=== PATIENT | female | born 1950 | race Caucasian/White ===

== ENCOUNTER 2016-11-19 10:17 | Emergency (ER) | payer MEDICARE, OTHER ==
--- NOTE | 2016-11-19 11:27 | UC ---
Complaint Female HPI - HPI Summary HPI Summary: patient is having increased urinary frequency, dysuria and lower abdominal pressure for the past 5 days. - History Of Current Complaint Stated Complaint: URINARY Time Seen by Provider: 11/19/16 11:07 Hx Obtained From: Patient ?: No Onset/Duration: Sudden Onset, Lasting Days Timing: Lasting Days Severity Initially: Mild Severity Currently: Moderate Character: Burning Aggravating Factor(s): Urination - Allergies/Home Medications Allergies/Adverse Reactions: Allergies Allergy/AdvReac Type Severity Reaction Status Date / Time No Known Allergies Allergy Verified 11/19/16 11:28 Home Medications: Home Medications Alendronate (NF) [Fosamax (NF)] 35 mg PO WEEKLY 11/19/16 [History Confirmed 08/03] Cholecalciferol TAB* [Vitamin D TAB*] 2,000 unit DAILY 11/19/16 [History Confirmed 11/19/16] Cyclosporine 0.05% OPHTH (NF) [Restasis 0.05% OPHTH] 1 drop BOTH EYES BID [History Confirmed 11/19/16] Ibuprofen TAB* [Motrin TAB* 600 MG] 600 mg TID 11/19/16 [History Confirmed 11/19] Multiple Vitamins W/ Minerals [Multivitamin Adult] 1 chw PO DAILY 11/19/16 [ History Confirmed 11/19/16] Omeprazole CAP* [Prilosec CAP* 20 MG] 1 cap DAILY PRN 11/19/16 [History Confirmed 11/19/16] Pindolol* 10 mg PO BID 11/19/16 [History Confirmed 11/19/16] Potassium Chlor TAB* [Klor Con ER TAB*] 20 meq PO TID 11/19/16 [History Confirmed 11/19/16] Simvastatin TAB(NF) [Zocor(NF)] 10 mg PO QPM 11/19/16 [History Confirmed ] Triamterene/HCTZ 37.5-25 MG* [Dyazide CAP*] 1 cap QAM 11/19/16 [History Confirmed 11/19/16] predniSONE TAB* [Deltasone TAB*] 3 mg PO QAM 11/19/16 [History Confirmed ] PMH/Surg Hx/FS Hx/Imm Hx Previously Healthy: Yes - Surgical History Surgical History: Yes Surgery Procedure, Year, and Place: 10 hip surgeries - Family History Known Family History: Negative: Cardiac Disease, Hypertension - Social History Substance Use Type: None Review of Systems Constitutional: Negative Skin: Negative Eyes: Negative ENT: Negative Respiratory: Negative Cardiovascular: Negative Gastrointestinal: Abdominal Pain Genitourinary: Dysuria, Frequency, Urgency Motor: Negative Neurovascular: Negative Musculoskeletal: Negative Neurological: Negative Psychological: Negative All Other Systems Reviewed And Are Negative: Yes Physical Exam Triage Information Reviewed: Yes Appearance: Well-Appearing, Well-Nourished, Pain Distress Vital Signs Reviewed: Yes Eye Exam: Normal Eyes: Positive: Conjunctiva Clear ENT Exam: Normal Dental Exam: Normal Neck exam: Normal Respiratory Exam: Normal Cardiovascular Exam: Normal Abdomen Description: Positive: Nontender, No Organomegaly, Soft, CVA Tenderness (R) - neg, CVA Tenderness (L) - neg Bowel Sounds: Positive: Present Musculoskeletal Exam: Normal Neurological Exam: Normal Psychological Exam: Normal Skin Exam: Normal Complaint Female Dx - Course Course Of Treatment: hx obtained, exam performed, meds reviewed, UA obtained and is positive, treated - Differential Dx/Diagnosis Differential Diagnosis/HQI/PQRI: Ureteral Stone, Urinary Tract Infection Provider Diagnoses: UTI Discharge - Discharge Plan Condition: Stable Disposition: HOME Prescriptions: Cephalexin CAP* [Keflex CAP*] 500 mg PO BID #14 cap Patient Education Materials: Urinary Tract Infection in Women (ED) Referrals: Kiley Soliman MD [Primary Care Provider] - Additional Instructions: 1. Increase fluid intake 2. Take the medication as prescribed. 3. Follow up with Dr Soliman if symptoms persist
[2016-11-19 11:33] VITALS: BP 110/62
== END 2016-11-19 11:55 | disposition home or self-care (01) ==
LOC: UCCORT 10:17
DX: N39.0 Urinary tract infection, site not specified (principal)
CPT/HCPCS: 81003; 87077; 87086; 87186; 99202; G0463

== ENCOUNTER 2017-01-31 11:37 | Emergency (ER) | payer MEDICARE, OTHER ==
[2017-01-31 12:18] VITALS: BP 132/64
--- NOTE | 2017-01-31 12:30 | UC ---
Throat Pain/Nasal Aly HPI - HPI Summary HPI Summary: 66 year old female with sinus pressure. SINUS PRESSURE FOR 10 DAYS. POST NASAL DRIP WITH THICK MUCUS. COUGH. "FEELS LIKE A SINUS INFECTION. HEADACHE. EYE PRESSURE. DENIES FEVER OR CHILLS [ End ] - History of Current Complaint Chief Complaint: UCRespiratory Stated Complaint: SINUS Time Seen by Provider: 01/31/17 12:23 Hx Obtained From: Patient ?: No Onset/Duration: Gradual Onset Severity: Moderate Cough: Productive Associated Signs & Symptoms: Positive: Negative - Epiglottits Risk Factors Epiglottis Risk Factors: Negative - Allergies/Home Medications Allergies/Adverse Reactions: Allergies Allergy/AdvReac Type Severity Reaction Status Date / Time No Known Allergies Allergy Verified 01/31/17 12:10 PMH/Surg Hx/FS Hx/Imm Hx Previously Healthy: Yes Endocrine History: Dyslipidemia Cardiovascular History: Hypertension GI/ History: Gastroesophageal Reflux - Surgical History Surgical History: Yes Surgery Procedure, Year, and Place: 10 hip surgeries. KIDNEY STONE REMOVAL. TONSILLECTOMY. - Family History Known Family History: Negative: Cardiac Disease, Hypertension - Social History Occupation: Retired Lives: With Family Alcohol Use: Rare Substance Use Type: None Smoking Status (MU): Never Smoked Tobacco - Immunization History Most Recent Influenza Vaccination: JAN 2017 Most Recent Tetanus Shot: UTD Most Recent Pneumonia Vaccination: UTD Review of Systems Constitutional: Fatigue ENT: Nasal Discharge, Sinus Congestion, Sinus Pain/Tenderness All Other Systems Reviewed And Are Negative: Yes Physical Exam Triage Information Reviewed: Yes Appearance: Well-Appearing, No Pain Distress, Well-Nourished Vital Signs: Initial Vital Signs Temp 97.5 F 01/31/17 12:13 Pulse 71 01/31/17 12:13 Resp 18 01/31/17 12:13 BP 132/64 01/31/17 12:13 Pulse Ox 99 01/31/17 12:13 Eye Exam: Normal ENT Exam: Normal ENT: Positive: Nasal congestion, Nasal drainage - purulent, Other: - maxillary Dental Exam: Normal Neck exam: Normal Neck: Positive: 1 Respiratory Exam: Normal Cardiovascular Exam: Normal Abdominal Exam: Normal Musculoskeletal Exam: Normal Neurological Exam: Normal Psychological Exam: Normal Skin Exam: Normal Throat Pain/Nasal Course/Dx - Course Course Of Treatment: Per patient has had numerous sinusitis infections in the past and does not have resolution of Sx with amox/keflex and that she does have improvement and resolution of sinus infecetion with bactrim so she requests and we will prescribe that at this time - Differential Dx/Diagnosis Differential Diagnosis/HQI/PQRI: Pharyngitis, Sinusitis, Tonsillitis, URI Provider Diagnoses: Sinusitis Discharge - Discharge Plan Condition: Good Disposition: HOME Prescriptions: Sulfamethox/Trimethoprim DS* [Bactrim DS 800/160 TAB*] 1 tab PO BID #20 tab Patient Education Materials: Sinusitis (ED) Referrals: Kiley Soliman MD [Primary Care Provider] - 4 Days
== END 2017-01-31 12:50 | disposition home or self-care (01) ==
LOC: UCCORT 11:37
DX: J32.9 Chronic sinusitis, unspecified (principal); E78.5 Hyperlipidemia, unspecified; I10 Essential (primary) hypertension
CPT/HCPCS: 99212; G0463